=== PATIENT | female | born 1990 | race Caucasian/White ===

== ENCOUNTER 2018-09-04 10:57 | Emergency (ER) | payer OTHER ==
[~2018-09-04] VITALS: Ht 147.3 cm; Wt 39.0 kg
[~2018-09-04 10:57] MED LIST: ULTRACET PO
== END 2018-09-04 16:38 | disposition home or self-care (01) ==
LOC: ER 10:57
DX: R31.0 Gross hematuria (principal); R10.2 Pelvic and perineal pain

== ENCOUNTER 2018-09-30 14:14 | Emergency (ER) | payer OTHER ==
[~2018-09-30] VITALS: Ht 147.3 cm; Wt 41.7 kg
== END 2018-09-30 21:17 | disposition home or self-care (01) ==
LOC: ER 14:14
DX: N93.8 Other specified abnormal uterine and vaginal bleeding (principal)

== ENCOUNTER 2019-01-09 21:40 | Emergency (ER) | payer OTHER ==
[~2019-01-09] VITALS: Ht 147.3 cm; Wt 41.7 kg
== END 2019-01-09 22:59 | disposition home or self-care (01) ==
LOC: ER 21:40
DX: S13.4XXA Sprain of ligaments of cervical spine, initial encounter (principal); S16.1XXA Strain of muscle, fascia and tendon at neck level, initial encounter; V49.9XXA Car occupant (driver) (passenger) injured in unspecified traffic accident, initial encounter; Y93.89 Activity, other specified; Y92.488 Other paved roadways as the place of occurrence of the external cause; Y99.8 Other external cause status

== ENCOUNTER 2019-02-12 19:24 | Emergency (ER) | payer OTHER ==
[~2019-02-12] VITALS: Ht 149.9 cm; Wt 40.8 kg
== END 2019-02-12 22:42 | disposition home or self-care (01) ==
LOC: ER 19:24
DX: R42 Dizziness and giddiness (principal); R53.1 Weakness

== ENCOUNTER 2019-05-05 18:04 | Emergency (ER) | payer OTHER ==
[~2019-05-05] VITALS: Ht 147.3 cm; Wt 41.7 kg
== END 2019-05-05 22:42 | disposition home or self-care (01) ==
LOC: ER 18:04
DX: R11.11 Vomiting without nausea (principal); R10.84 Generalized abdominal pain; R50.9 Fever, unspecified

== ENCOUNTER 2019-07-18 12:39 | Outpatient (CLI) | payer OTHER | END 2019-07-18 12:47 | disposition home or self-care (01) | LOC: RAD 12:39 | DX: R10.2 Pelvic and perineal pain (principal) ==

== ENCOUNTER 2019-09-02 16:45 | Emergency (ER) | payer OTHER ==
[~2019-09-02] VITALS: Ht 147.3 cm; Wt 43.5 kg
== END 2019-09-02 21:02 | disposition home or self-care (01) ==
LOC: ER 16:45
DX: K29.70 Gastritis, unspecified, without bleeding (principal)

== ENCOUNTER 2019-09-26 18:46 | Emergency (ER) | payer OTHER ==
[~2019-09-26] VITALS: Ht 147.3 cm; Wt 43.5 kg
== END 2019-09-26 22:15 | disposition home or self-care (01) ==
LOC: ER 18:46
DX: K52.9 Noninfective gastroenteritis and colitis, unspecified (principal)

== ENCOUNTER → 2019-11-21 | Emergency (ER) | payer OTHER ==
[~2019-11-21] VITALS: Ht 147.3 cm; Wt 43.5 kg
== END | disposition left against medical advice (07) ==
LOC: ER 21:40
DX: Z53.20 Procedure and treatment not carried out because of patient's decision for unspecified reasons (principal)